=== PATIENT | female | born 1960 | race Caucasian/White ===

== ENCOUNTER → 2020-12-30 14:18 | Outpatient (BNVA) | payer OTHER, SELFPAY | PROVIDERS: Visit Provider Registered Nurse | DX: Z02.1 Encounter for pre-employment examination (principal) | CPT/HCPCS: 80307 ==

== ENCOUNTER → 2021-07-20 12:51 | Outpatient (BNVA) | payer MEDICARE, SELFPAY | PROVIDERS: Referring Provider Family Medicine; Visit Provider Podiatrist Foot & Ankle Surgery | DX: M72.2 Plantar fascial fibromatosis (principal); M19.071 Primary osteoarthritis, right ankle and foot; M79.671 Pain in right foot | CPT/HCPCS: 99203; 99204 ==

== ENCOUNTER → 2021-09-12 07:52 | Outpatient (BNVA) | payer MEDICARE, SELFPAY | PROVIDERS: Referring Provider Family Medicine; Visit Provider Internal Medicine | DX: M81.0 Age-related osteoporosis without current pathological fracture (principal); R94.6 Abnormal results of thyroid function studies; Z87.81 Personal history of (healed) traumatic fracture | CPT/HCPCS: 82306; 82310; 83970; 84439; 84443; 99204 ==

== ENCOUNTER → 2021-09-28 13:00 | Outpatient (BNVA) | payer MEDICARE, SELFPAY | PROVIDERS: Visit Provider Podiatrist Foot & Ankle Surgery | DX: M19.071 Primary osteoarthritis, right ankle and foot (principal); M95.8 Other specified acquired deformities of musculoskeletal system | CPT/HCPCS: 99214 ==

== ENCOUNTER 2021-11-23 15:47 | Outpatient (CLI) | payer MEDICARE, SELFPAY | END 2021-11-23 15:48 | disposition home or self-care (01) | LOC: SPT 15:48 | PROVIDERS: Visit Provider Podiatrist Foot & Ankle Surgery | DX: M79.671 Pain in right foot (principal); Z87.81 Personal history of (healed) traumatic fracture | CPT/HCPCS: 97760; L4361 ==

== ENCOUNTER → 2021-11-28 10:43 | Outpatient (BNVA) | payer MEDICARE, SELFPAY | PROVIDERS: Visit Provider Internal Medicine | DX: R53.83 Other fatigue (principal) | CPT/HCPCS: 80048; 82310; 83735; 83970 ==

== ENCOUNTER 2021-12-05 15:21 | Outpatient (CLI) | payer MEDICARE, SELFPAY | END 2021-12-05 15:22 | disposition home or self-care (01) | LOC: SPT 15:21 | PROVIDERS: Visit Provider Podiatrist Foot & Ankle Surgery | DX: Z46.89 Encounter for fitting and adjustment of other specified devices (principal); M19.071 Primary osteoarthritis, right ankle and foot; M93.979 Osteochondropathy, unspecified, unspecified ankle and foot | CPT/HCPCS: 97760; L3030 ==

== ENCOUNTER → 2022-01-02 09:38 | Outpatient (BNVA) | payer MEDICARE, SELFPAY | PROVIDERS: Visit Provider Podiatrist Foot & Ankle Surgery | DX: M19.071 Primary osteoarthritis, right ankle and foot (principal); M95.8 Other specified acquired deformities of musculoskeletal system | CPT/HCPCS: 99213 ==

== ENCOUNTER → 2022-11-27 12:06 | Outpatient (BNVA) | payer MEDICARE, SELFPAY | PROVIDERS: PCP Family Medicine; Visit Provider Internal Medicine | DX: E67.3 Hypervitaminosis D (principal); M81.0 Age-related osteoporosis without current pathological fracture; Z87.81 Personal history of (healed) traumatic fracture | CPT/HCPCS: 36415; 82306; 99214 ==

== ENCOUNTER → 2023-06-07 07:18 | Outpatient (BNVA) | payer MEDICARE, SELFPAY | PROVIDERS: PCP Family Medicine; Visit Provider Podiatrist Foot & Ankle Surgery | DX: L60.0 Ingrowing nail (principal) | CPT/HCPCS: 11730 ==

== ENCOUNTER → 2023-07-09 11:07 | Outpatient (BNVA) | payer MEDICARE, SELFPAY | PROVIDERS: PCP Family Medicine; Visit Provider Internal Medicine | DX: E67.3 Hypervitaminosis D (principal); M81.0 Age-related osteoporosis without current pathological fracture; Z87.81 Personal history of (healed) traumatic fracture | CPT/HCPCS: 36415; 80053; 82306; 99214 ==

== ENCOUNTER 2023-11-06 10:25 | Outpatient (RCR) | payer MEDICARE, SELFPAY | END 2023-12-03 23:59 | disposition home or self-care (01) | LOC: SPT 10:25 | PROVIDERS: Visit Provider Nurse Practitioner Family | DX: M47.812 Spondylosis without myelopathy or radiculopathy, cervical region (principal) | CPT/HCPCS: 97110; 97162 ==

== ENCOUNTER 2023-12-04 06:00 | Outpatient (RCR) | payer MEDICARE, SELFPAY | END 2023-12-13 23:59 | disposition home or self-care (01) | LOC: SPT 06:00 | PROVIDERS: Visit Provider Nurse Practitioner Family | DX: M47.812 Spondylosis without myelopathy or radiculopathy, cervical region (principal); M79.18 Myalgia, other site; G89.29 Other chronic pain | CPT/HCPCS: 97110 ==

== ENCOUNTER → 2024-03-25 13:26 | Outpatient (BNVA) | payer MEDICARE, SELFPAY | PROVIDERS: Visit Provider Internal Medicine | DX: E83.52 Hypercalcemia (principal); M81.0 Age-related osteoporosis without current pathological fracture | CPT/HCPCS: 36415; 80053; 99214 ==

== ENCOUNTER → 2024-09-16 14:25 | Outpatient (BNVA) | payer MEDICARE, SELFPAY | PROVIDERS: PCP Family Medicine; Visit Provider Podiatrist Foot & Ankle Surgery | DX: L60.3 Nail dystrophy (principal); M24.552 Contracture, left hip; M24.551 Contracture, right hip | CPT/HCPCS: 99213 ==

== ENCOUNTER → 2024-09-22 11:18 | Outpatient (BNVA) | payer MEDICARE, SELFPAY | PROVIDERS: PCP Family Medicine; Visit Provider Internal Medicine | DX: E67.3 Hypervitaminosis D (principal); E55.9 Vitamin D deficiency, unspecified; M81.0 Age-related osteoporosis without current pathological fracture; Z87.81 Personal history of (healed) traumatic fracture | CPT/HCPCS: 99214 ==

== ENCOUNTER → 2024-12-01 10:07 | Outpatient (BNVA) | payer MEDICARE, SELFPAY | PROVIDERS: PCP Family Medicine; Visit Provider Podiatrist Foot & Ankle Surgery | DX: L60.8 Other nail disorders (principal); L60.3 Nail dystrophy; M24.551 Contracture, right hip | CPT/HCPCS: 99213 ==

== ENCOUNTER → 2024-12-19 11:06 | Outpatient (BNVA) | payer MEDICARE, SELFPAY | PROVIDERS: PCP Family Medicine; Visit Provider Nurse Practitioner Family | DX: L29.89 Other pruritus (principal); L21.8 Other seborrheic dermatitis; L57.8 Other skin changes due to chronic exposure to nonionizing radiation; L82.1 Other seborrheic keratosis | CPT/HCPCS: 99204 ==

== ENCOUNTER → 2025-01-05 10:57 | Outpatient (BNVA) | payer MEDICARE, SELFPAY | PROVIDERS: PCP Family Medicine; Visit Provider Podiatrist Foot & Ankle Surgery | DX: M19.071 Primary osteoarthritis, right ankle and foot (principal); M95.8 Other specified acquired deformities of musculoskeletal system | CPT/HCPCS: 99213 ==

== ENCOUNTER 2025-02-11 14:47 | Outpatient (CLI) | payer MEDICARE, SELFPAY | END 2025-02-11 14:48 | disposition home or self-care (01) | LOC: SPT 14:47 | PROVIDERS: PCP Family Medicine; Visit Provider Podiatrist Foot & Ankle Surgery | DX: Z46.89 Encounter for fitting and adjustment of other specified devices (principal); M19.071 Primary osteoarthritis, right ankle and foot; M93.971 Osteochondropathy, unspecified, right ankle and foot | CPT/HCPCS: 97161 ==